=== PATIENT | male | born 1990 | race Caucasian/White ===

== ENCOUNTER 2025-07-30 13:10 | Emergency (ER) | payer OTHER ==
[~2025-07-30] VITALS: Ht 182.9 cm; Wt 63.5 kg
[2025-07-30 13:25] VITALS: BP 113/67; TEMP 97.5; O2SAT 100
== END 2025-07-30 14:38 | disposition left against medical advice (07) ==
LOC: ER 13:28
DX: R06.02 Shortness of breath (principal); R07.9 Chest pain, unspecified; Z53.21 Procedure and treatment not carried out due to patient leaving prior to being seen by health care provider